=== PATIENT | male | born 1995 | race African-American/Black ===

== ENCOUNTER 2016-12-09 21:41 | Emergency (ER) | payer OTHER, BC ==
[~2016-12-09] VITALS: Ht 170.2 cm; Wt 67.2 kg
[~2016-12-09 21:41] MED LIST: NOHOMEMEDS
[2016-12-09] MEDS ORDERED: FLEXERIL10 MG PO (23:44)
[2016-12-09 23:57] VITALS: BP 149/88
== END 2016-12-09 23:58 | disposition home or self-care (01) ==
LOC: EXP 21:41 → EME 21:41 → EXP 23:58
DX: S13.4XXA Sprain of ligaments of cervical spine, initial encounter (principal); V49.40XA Driver injured in collision with unspecified motor vehicles in traffic accident, initial encounter; F17.200 Nicotine dependence, unspecified, uncomplicated
CPT/HCPCS: 99281; 99283